=== PATIENT | male | born 1985 | race Caucasian/White ===

== ENCOUNTER 2017-07-31 21:18 | Emergency (ER) | payer OTHER ==
[~2017-07-31] VITALS: Ht 177.8 cm; Wt 66.7 kg
[2017-07-31 21:22] VITALS: Ht 177.8 cm; Wt 66.7 kg
[2017-08-01 01:38] VITALS: BP 130/78
== END 2017-08-01 01:38 | disposition home or self-care (01) ==
LOC: ED 21:18
DX: S67.02XA Crushing injury of left thumb, initial encounter (principal); F17.210 Nicotine dependence, cigarettes, uncomplicated; Z71.6 Tobacco abuse counseling; X58.XXXA Exposure to other specified factors, initial encounter; Y93.89 Activity, other specified; Y92.89 Other specified places as the place of occurrence of the external cause; Y99.8 Other external cause status
CPT/HCPCS: 99406; J0690; J2001; Q0092

== ENCOUNTER 2017-08-11 16:44 | Emergency (ER) | payer OTHER ==
[~2017-08-11] VITALS: Ht 177.8 cm; Wt 67.1 kg
[2017-08-11 16:53] VITALS: BP 137/72; Ht 177.8 cm; Wt 67.1 kg
== END 2017-08-11 17:15 | disposition home or self-care (01) ==
LOC: ED 16:44
DX: S61.012D Laceration without foreign body of left thumb without damage to nail, subsequent encounter (principal); X58.XXXD Exposure to other specified factors, subsequent encounter